=== PATIENT | female | born 2000 | race Caucasian/White ===

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

== ENCOUNTER 2022-01-22 15:48 | Emergency (ER) | payer OTHER ==
[~2022-01-22] VITALS: Ht 165.1 cm; Wt 56.7 kg
[2022-01-22] MEDS ORDERED: AMOCLA875 PO (16:35)
[2022-01-22] MEDS ORDERED: Vistaril25 MG PO (16:35)
== END 2022-01-22 16:38 | disposition home or self-care (01) ==
LOC: ER 15:48
DX: J32.9 Chronic sinusitis, unspecified (principal); Z91.018 Allergy to other foods
CPT/HCPCS: 99282

== ENCOUNTER 2022-06-28 10:40 | Emergency (ER) | payer OTHER ==
[~2022-06-28 10:40] MED LIST changes: +AMOCLA875 PO; +Vistaril25 MG PO
== END 2022-06-28 14:46 | disposition home or self-care (01) ==
DX: J06.9 Acute upper respiratory infection, unspecified (principal); Z91.018 Allergy to other foods

== ENCOUNTER 2022-11-30 14:15 | Emergency (ER) | payer OTHER ==
[~2022-11-30] VITALS: Ht 162.6 cm; Wt 63.5 kg
[2022-11-30 14:25] VITALS: BP 140/94
[2022-11-30] MEDS ORDERED: Hydroxyzine HCl50 MG PO (14:42)
[2022-11-30] MEDS ORDERED: ZOLOFT10013 PO (14:42)
[2022-11-30] MEDS ORDERED: IBUP800 PO (15:35)
== END 2022-11-30 15:42 | disposition home or self-care (01) ==
LOC: ER 14:15
DX: M25.561 Pain in right knee (principal); X50.1XXA Overexertion from prolonged static or awkward postures, initial encounter; Z91.018 Allergy to other foods
CPT/HCPCS: 29505; 73562-RT; 99283-25; A9270

== ENCOUNTER → 2025-08-06 | Outpatient (CLI) | payer OTHER ==
[~2025-08-06] MED LIST changes: +Hydroxyzine HCl50 MG PO; +IBUP800 PO; +ZOLOFT10013 PO
== END | disposition home or self-care (01) ==
LOC: LAB 18:46 → LAB SHORT 18:46
DX: J02.9 Acute pharyngitis, unspecified (principal)
CPT/HCPCS: 87081; 87147